=== PATIENT | female | born 1990 | race Caucasian/White ===

== ENCOUNTER 2019-04-29 08:44 | Emergency (ER) | payer OTHER ==
[2019-04-29 08:56] VITALS: BP 133/79
[2019-04-29] MEDS ORDERED: LIDOCAINE 1% INJ-PF (10 MG/ML) 30 ML SDV INJ ONE (09:36)
--- NOTE | 2019-04-29 09:36 | ER Document Report ---
HPI - HPI Patient complains to provider of: Laceration Time Seen by Provider: 04/29/19 09:33 Onset: Just prior to arrival Onset/Duration: Sudden Quality of pain: Achy Pain Level: 1 Context: 29-year-old female presents emergency department with 1 cm laceration to her le ft hand thenar area. Reports she was opening some boxes for [employer]. Reports her tetanus is up-to-date. No active bleeding. Denies pain at this time. No other complaints such as fever vomiting diarrhea. Patient is right-hand dominant Associated Symptoms: None Exacerbated by: Denies Relieved by: Denies Similar symptoms previously: No Recently seen / treated by doctor: No - REPRODUCTIVE Reproductive: DENIES: : Past Medical History - General Information source: Patient - Social History Smoking Status: Former Smoker Cigarette use (# per day): No Frequency of alcohol use: None Drug Abuse: None Occupation: animal care attendant Lives with: Family Family History: None Patient has suicidal ideation: No Patient has homicidal ideation: No Psychiatric Medical History: Reports: Hx Depression - anxiety Surgical Hx: Negative Vertical Provider Document - CONSTITUTIONAL Agree With Documented VS: Yes Exam Limitations: No Limitations General Appearance: WD/WN, No Apparent Distress - INFECTION CONTROL TRAVEL OUTSIDE OF THE [place] IN LAST 30 DAYS: No - HEENT HEENT: Atraumatic, Normocephalic - NECK Neck: Supple - RESPIRATORY Respiratory: No Respiratory Distress - CARDIOVASCULAR Cardiovascular: Regular Rate - MUSCULOSKELETAL/EXTREMETIES Musculoskeletal/Extremeties: MAEW, FROM, Tender - NEURO Level of Consciousness: Awake, Alert, Appropriate Motor/Sensory: No Motor Deficit - DERM Integumentary: Warm, Dry, Laceration - 1 cm laceration to the left hand, thenar, no active bleeding Course - Re-evaluation Re-evalutation: 04/29/19 10:09 29-year-old female presents with 1 cm laceration to the left hand thenar area. Reports she was opening [employer] boxes with a pocket knife. Reports her tetanus is up-to-date. Patient hand was soaked in warm water and Shur-Clens. Area was cleaned well and closed with 3 sutures. Patient taught tolerated procedure well. Patient was also instructed on signs and symptoms of infection and to return here for suture removal in 10 to 14 days. She verbalized understanding to all information. - Vital Signs Vital signs: Temp Pulse Resp BP Pulse Ox 97.6 F 89 20 133/79 H 97 04/29/19 08:47 04/29/19 08:47 04/29/19 08:47 04/29/19 08:47 04/29/19 08:47 Procedures - Laceration/Wound Repair Left Hand Time completed: 10:07 Wound length (cm): 1 Wound's Depth, Shape: Superficial Laceration pre-procedure: Shur-Clens applied Anesthetic type: 1% Lidocaine Volume Anesthetic (mLs): 2 Wound explored: Clean Irrigated w/ Saline (mLs): 250 Wound Repaired With: Sutures Suture Size/Type: 5:0, Nylon Number of Sutures: 3 Hands front picture: 1 - 1 cm laceration closed with 3 sutures patient tolerated procedure well Discharge - Discharge Clinical Impression: laceration with suture repair Condition: Stable Disposition: HOME, SELF-CARE Instructions: Laceration Care ([facility]), Soap Cleansing ([facility]) Additional Instructions: *You have been treated for a laceration with suture repair *Monitor the site for signs of infection such as increasing pain, redness, swelling, warmth *Keep the area clean *Return to the emergency department in 10- 14 days for suture removal *Return to the emergency department earlier for signs of infection, worsening condition, changes, needs, concerns Monitor your blood pressure. Your blood pressure was elevated today. This may be because you were anxious, in pain or because you need medication. It is important to follow up with your primary care provider for full evaluation. Forms: Elevated Blood Pressure
== END 2019-04-29 10:11 | disposition home or self-care (01) ==
LOC: ER 08:44
DX: S61.412A Laceration without foreign body of left hand, initial encounter (principal); W26.0XXA Contact with knife, initial encounter; Y93.89 Activity, other specified; Z87.891 Personal history of nicotine dependence
CPT/HCPCS: 99282